=== PATIENT | male | born 1955 | race Caucasian/White ===

== ENCOUNTER 2018-09-04 11:30 | Inpatient (IN) | payer OTHER ==
[~2018-09-04] VITALS: Ht 167.6 cm; Wt 64.0 kg
[2018-09-04 12:33] LABS: BASOPHILS ABSOLUTE AUTO 0.06 K/mm3 (0.00-0.23); BASOPHILS PERCENT AUTO 0 % (0-2); EOSINOPHILS ABSOLUTE AUTO 0.03 K/mm3 (0.00-0.68); EOSINOPHILS PERCENT AUTO 0 % (0-6); Hematocrit 42.8 % (37.0-53.0); Hemoglobin 13.8 g/dL (13.5-17.5); IMMATURE GRAN ABSOLUTE AUTO 0.07 K/mm3 (0.00-0.10); IMMATURE GRAN PERCENT AUTO 0 % (0-1); LYMPHOCYTES ABSOLUTE AUTO 2.58 K/mm3 (0.84-5.20); LYMPHOCYTES PERCENT AUTO 14 % (21-46); MONOCYTES ABSOLUTE AUTO 1.74 K/mm3 (0.16-1.47); MONOCYTES PERCENT AUTO 9 % (4-13); Mean Corpuscular HGB 30.4 pg (26.0-34.0); Mean Corpuscular HGB Conc 32.2 g/dL (31.5-36.5); Mean Corpuscular Volume 94 fL (80-100); Mean Platelet Volume 10.7 fL (9.1-12.4); NEUTROPHILS ABSOLUTE AUTO 14.04 K/mm3 (1.96-9.15); NEUTROPHILS PERCENT AUTO 76 % (41-73); Platelet Count 153 K/mm3 (150-400); RDW Coefficient Variation 13.2 % (11.7-14.2); RDW Standard Deviation 46.1 fL (35.1-46.3); Red Blood Cell Count 4.54 M/mm3 (4.30-5.90); White Blood Cell Count 18.52 K/mm3 (4.00-11.30)
[2018-09-04 12:52] LABS: Alanine Aminotransfer (ALT/SGP 26 U/L (12-78); Albumin, Blood 3.6 g/dL (3.4-5.0); Albumin/Globulin Ratio 1.1 (0.8-1.8); Alk Phos 71 U/L (50-136); Anion Gap 6 mmol/L (6-16); Aspartate Aminotrans (AST/SGOT 23 U/L (12-37); Bilirubin, Total 0.5 mg/dL (0.1-1.0); Blood Urea Nitrogen 14 mg/dL (8-24); Bun/Creatinine Ratio 20.8 (12.0-20.0); CO2, Blood 23 mmol/L (21-32); Calcium, Blood 8.3 mg/dL (8.5-10.1); Chloride, Blood 111 mmol/L (98-108); Creatinine, Blood 0.67 mg/dL (0.60-1.20); Globulin, Blood 3.4 g/dL (2.2-4.0); Glomerular Filtration Rate >60 (60-); Glucose, Blood 106 mg/dL (70-99); Potassium, Blood 3.7 mmol/L (3.5-5.5); Sodium, Blood 140 mmol/L (136-145)
[2018-09-04] MEDS ORDERED: LANS30EC PO (13:43)
[2018-09-04] MEDS ORDERED: SIMV40 PO (13:44)
[2018-09-04] MEDS ORDERED: Coq-1030 MG PO (13:44)
[2018-09-04 15:12] LABS: International Normalized Ratio 1.05; Prothrombin Time Results 11.1 Sec (9.7-11.5)
--- NOTE | 2018-09-04 16:20 | NUR ---
ADMIT TO PCU 11, VIA MINI FROM ER; DX: ? NSTEMI AND POSSIBLE PNEUMONIA. PATIENT AND SPOUSE ORIENTED TO ROOM AND PROTOCOLS. PATIENT WITH CHEST SORENESS WHICH IS AGGRAVATED WITH EACH BREATH; WORSE WITH DEEP BREATHS. BIOX. READINGS MID TO HIGH 90'S; OXYGEN AT 3L/MIN VIA NC. LUNGS DECREASED T/O; COUGH DRY AND NON-PRODUCTIVE. SEE ER REPORTS FOR DETAILS.
--- NOTE | 2018-09-04 17:00 | NUR ---
HEPARIN DRIP STARTED EARLIER; SEE EMAR. PROTONIX AND METOPROLOL (1/2 OF 25MG) GIVEN PO.
[2018-09-04 17:20] LABS: Adenovirus Not Detected (NOT DETECT); Bordetella pertussis Not Detected (NOT DETECT); Chlamydophila pneumoniae Not Detected (NOT DETECT); Coronavirus 229E Not Detected (NOT DETECT); Coronavirus HKU1 Not Detected (NOT DETECT); Coronavirus NL63 Not Detected (NOT DETECT); Coronavirus OC43 Not Detected (NOT DETECT); Human Metapneumovirus Not Detected (NOT DETECT); Human Rhinovirus/Enterovirus Not Detected (NOT DETECT); Influenza A Not Detected (NOT DETECT); Influenza A/2009-H1 Not Detected (NOT DETECT); Influenza A/H1 Not Detected (NOT DETECT); Influenza A/H3 Not Detected (NOT DETECT); Influenza B Not Detected (NOT DETECT); Mycoplasma pneumoniae Not Detected (NOT DETECT); Parainfluenza Virus 1 Not Detected (NOT DETECT); Parainfluenza Virus 2 Not Detected (NOT DETECT); Parainfluenza Virus 3 Not Detected (NOT DETECT); Parainfluenza Virus 4 Not Detected (NOT DETECT); Respiratory Syncytial Virus Not Detected (NOT DETECT)
--- NOTE | 2018-09-04 17:30 | NUR ---
DR. JUNIOR (BODY LINER) CALLED; READ PATIENTS' ECHO AND HAD LOOKED AT EKG; FEELS CARDIOLOGY CONSULT NOT INDICATED AT THIS TIME BUT RN NEEDS TO CALL THE HOSPITALIST [facility] FOR PATIENT AND LET HER KNOW; IF CONSULT STILL DESIRED DR. JUNIOR REQUESTS T/C TO ANSWERING SERVICE, IN AM, TO NOTIFY TOMORROW'S LOAN PROCESSING SUPERVISOR PHYSICIAN. RN SPOKE TO DR. LAZO AND SHE IS OKAY WITH WAITING TIL TOMORROW FOR CONSULT IF INDICATED; WILL SEE HOW PATIENT PROGRESSES T/O NIGHT.
--- NOTE | 2018-09-04 18:00 | NUR ---
SUMMARY: NO ACUTE CHANGES; PATIENT CONT. WITH CHEST SORENESS AND WANTING PAIN MEDICATION. RN OFFERED TYLENOL OR MORPHINE AND PATIENT DOESN'T FEEL GOOD ABOUT EITHER MED. SPOUSE STATES PATIENT RECEIVED A MEDICATION IN THE ER THAT HELPED A LOT; IT WAS AN ANXIETY MED. RN INSTRUCTED WILL EVAL EMAR, ETC. TAKING PO MEDS AND WATER WITHOUT GI UPSET. WILL REPORT TO ONCOMING RN.
--- NOTE | 2018-09-04 19:30 | NUR ---
DR CHOI CRITICAL TROPONIN CALLED TO THIS NURSE @[address] CHOI ON UNIT. NOTIFIED, DR WATCHING TELE MONITOR ON THIS PT AND STATES WANTING STAT EKG. STAT EKG PERFORMED. PAPER TO DR. HOBBS TO ROOM TO ASSESS PT. PLACES MED ORDERS. PLACES ORDER STAT PORTABLE CXR. SPOKE WITH DR PRYOR. KONSTANTIN STATES HE DOES NOT SEE A NEED FOR ANGIOGRAM TONIGHT BUT WILL CONTINUE TO MONITOR. EKG ORDERED FOR 09/05. TROPONINS TO BE DRAWN VIA LAB. HEPARIN INF BOLUS GIVEN PER PHARMACY AND INFUSION RATE TITRATED R/T APTT RESULTS. PT TOLD TO NOTIFY NURSE IF HIS CP CHANGES, WORSENS OR IF HE EXPERIENCES DYSPNEA, SOB, SWEATING, ETC. 0036 PT HAS BEEN RESTING QUIETLY. HAS DENIED CP CHANGES, DENIES CHEST PRESSURE. VSS
[2018-09-05 04:17] LABS: BASOPHILS ABSOLUTE AUTO 0.09 K/mm3 (0.00-0.23); BASOPHILS PERCENT AUTO 1 % (0-2); EOSINOPHILS ABSOLUTE AUTO 0.12 K/mm3 (0.00-0.68); EOSINOPHILS PERCENT AUTO 1 % (0-6); Hematocrit 44.4 % (37.0-53.0); Hemoglobin 14.1 g/dL (13.5-17.5); IMMATURE GRAN ABSOLUTE AUTO 0.03 K/mm3 (0.00-0.10); IMMATURE GRAN PERCENT AUTO 0 % (0-1); LYMPHOCYTES ABSOLUTE AUTO 3.16 K/mm3 (0.84-5.20); LYMPHOCYTES PERCENT AUTO 26 % (21-46); MONOCYTES ABSOLUTE AUTO 1.52 K/mm3 (0.16-1.47); MONOCYTES PERCENT AUTO 12 % (4-13); Mean Corpuscular HGB 30.2 pg (26.0-34.0); Mean Corpuscular HGB Conc 31.8 g/dL (31.5-36.5); Mean Corpuscular Volume 95 fL (80-100); Mean Platelet Volume 10.8 fL (9.1-12.4); NEUTROPHILS PERCENT AUTO 60 % (41-73); Platelet Count 162 K/mm3 (150-400); RDW Coefficient Variation 13.3 % (11.7-14.2); RDW Standard Deviation 46.8 fL (35.1-46.3); Red Blood Cell Count 4.67 M/mm3 (4.30-5.90); White Blood Cell Count 12.32 K/mm3 (4.00-11.30)
[2018-09-05 04:38] LABS: Alanine Aminotransfer (ALT/SGP 25 U/L (12-78); Albumin, Blood 3.3 g/dL (3.4-5.0); Albumin/Globulin Ratio 0.9 (0.8-1.8); Alk Phos 73 U/L (50-136); Anion Gap 5 mmol/L (6-16); Aspartate Aminotrans (AST/SGOT 22 U/L (12-37); Bilirubin, Total 0.7 mg/dL (0.1-1.0); Blood Urea Nitrogen 11 mg/dL (8-24); Bun/Creatinine Ratio 15.9 (12.0-20.0); CO2, Blood 24 mmol/L (21-32); Calcium, Blood 8.9 mg/dL (8.5-10.1); Chloride, Blood 111 mmol/L (98-108); Cholesterol 117 mg/dL (50-200); Creatinine, Blood 0.69 mg/dL (0.60-1.20); Globulin, Blood 3.8 g/dL (2.2-4.0); Glomerular Filtration Rate >60 (60-); Glucose, Blood 98 mg/dL (70-99); HDL Cholesterol 59 mg/dL (>39); LDL/HDL RATIO 0.8; Low Density Lipoprotein Chol 45 mg/dL (0-110); Magnesium, Blood 2.2 mg/dL (1.6-2.4); Potassium, Blood 4.2 mmol/L (3.5-5.5); Sodium, Blood 140 mmol/L (136-145); Total Protein, Blood 7.1 g/dL (6.4-8.2); Triglycerides 67 mg/dL (30-160); Very Low Density Lipoprot Chol 13 mg/dL (6-32)
--- NOTE | 2018-09-05 05:45 | NUR ---
END OF SHIFT SUMMARY SEE NOTE REGARDING DR CHOI AT BEGINNING OF SHIFT~ ST ELEVATION CONTINUES, CP CONTINUES, JIMBO IN ROOM AT THAT POINT. EKG DONE, CXR DONE. DOES NOT PLACE ORDER FOR ANGIO LAST NIGHT. STATES TO CONTINUE PT ON HEPARIN AND TO CLOSELY MONITO CORIE AND CP/PRESURE. ASKS NURSE TO CALL IF ANY ACUTE CHANGES PRESENT. PT STATES CP HAS NOPT CHANGED OR WORSENED, TROPONIN HAS DECREASED FROM 1.010 TO 0.853. WE WILL OBTAIN ORDERED EKG @0600 THIS AM. PT TO POSSIBLY HAVE ANGIO TODAY DEPENDENT ON . WILL CONTINUE TO MONITOR PT UNTIL SHIFT CHANGE. CALL DEB STONER, USES APPROPRIATELY.
--- NOTE | 2018-09-05 08:00 | NUR ---
ASSUMED CARE PT ALERT AND ORIENTED. VS STABLE. TELEMETRY SHOWS ST ELEVATION. DR. CHOI AWARE AND IN TO ASSESS PT THIS AM. PLAN TO HAVE ANGIOGRAM TODAY. PT HAS BEEN NPO SINCE MIDNIGHT. AT THE BEDSIDE AND BOTH AND PT EDUCATED ABOUT NEED FOR ANGIOGRAM. PT COMPLAINS OF CHEST PAIN AT THIS TIME THAT IS 4/10 AND FEELS "MORE LIKE INFLAMMATION" PER PT. PT REPORTS IT IS WORSE WHILE COUGHING. WILL CONTINUE TO MONITOR CLOSELY. CALL LIGHT IN REACH.
--- NOTE | 2018-09-05 11:15 | NUR ---
PT TAKEN TO [facility] FOR ANGIOGRAM. WILL AWAIT RETURN.
--- NOTE | 2018-09-05 12:46 | NUR ---
PT RETURNED FROM [facility]ART CENTER. VS STABLE. RIGHT RADIAL SITE HAS 12CC OF AIR IN BAND. NO SIGNS OF BLEEDING, BRUISING OR HEMATOMA FORMATION AT THIS TIME. WILL CONTINUE TO MONITOR CLOSELY.
--- NOTE | 2018-09-05 17:57 | NUR ---
SHIFT SUMMARY PT ALERT AND ORIENTED. VS STABLE. O2 SATS REMAIN ABOVE 90% ON RA. PT DENIES ANY PAIN. 6CC OF AIR HAVE BEEN REMOVED FROM TR BAND AT THIS TIME. PT DID HAVE SOME BLEEDING WITH INITIAL 2CC OF AIR REMOVAL, IN WHICH AIR WAS PLACED BACK INTO BAND. NO BLEEDING, HEMATOMA FORMATION, OR BRUISING AT THIS TIME. WILL CONTINUE TO REMOVE AIR FROM BAND PER PROTOCOL. PT DENIES ANY CHEST PAIN SINCE ANGIOGRAM. WILL CONTINUE TO MONITOR CLOSELY AND REPORT TO ONCOMING RN. CALL LIGHT IN REACH.
--- NOTE | 2018-09-05 21:20 | NUR ---
ASSUMED CARE OF PATIENT AT APPROXIMATELY 1910 FROM TIAN Ardon RN. PATIENT ALERT AND ORIENTED X4; INDEPENDENT IN ROOM; PATIENT EDUCATED AGAIN ON RESTRICTIONS AFTER ANGIO WITH RIGHT WRIST; VERBALIZED UNDERSTANDING. PATIENT REPORTS PAIN 2/10 IN HIS CHEST THAT HE REPORTS IS LIKE THE WORSE CHEST COLD; INCREASES WITH INSPIRATION; DENIES PAIN MEDICATION. PATIENT DENIES PAIN ELSEWHERE, NUMBNESS, TINGLING, DIZZINESS OR NAUSEA. NSR WITH ST ELEVATION ON TELE; FINE CHEMICALS OPERATOR REPORTS ST ELEVATION IMPROVED SINCE THIS MORNING; REPORTED WOOD STAINER AWARE; OXYGEN SATURATION ABOVE 90% ON ROOM AIR. PATIENT HAD ANGIOGRAM TODAY; ACCESS THROUGH RIGHT RADIAL; 12 CC OF AIR REMOVED; LESS THAN 2CC REMAINS; NO S/S OF ACTIVE BLEEDING, HEMATOMA OR BRUISING NOTED; SOME DRIED BLOOD NOTED FROM DAYSHIFT. PATIENT HAS TWO PIV S/L; ONE WAS TENDER AND REMOVED PER REQUEST. PATIENT CURRENTLY RESTING IN BED; BED IN LOWEST POSISTION; CALL LIGHT IN REACH; WILL CONTINUE TO MONITOR AND ASSESS UNTIL END OF SHIFT.
[2018-09-06 04:03] LABS: BASOPHILS ABSOLUTE AUTO 0.05 K/mm3 (0.00-0.23); BASOPHILS PERCENT AUTO 0 % (0-2); EOSINOPHILS ABSOLUTE AUTO 0.22 K/mm3 (0.00-0.68); EOSINOPHILS PERCENT AUTO 2 % (0-6); Hematocrit 44.3 % (37.0-53.0); Hemoglobin 14.4 g/dL (13.5-17.5); IMMATURE GRAN ABSOLUTE AUTO 0.05 K/mm3 (0.00-0.10); IMMATURE GRAN PERCENT AUTO 0 % (0-1); LYMPHOCYTES ABSOLUTE AUTO 2.66 K/mm3 (0.84-5.20); LYMPHOCYTES PERCENT AUTO 20 % (21-46); MONOCYTES PERCENT AUTO 10 % (4-13); Mean Corpuscular HGB 30.1 pg (26.0-34.0); Mean Corpuscular HGB Conc 32.5 g/dL (31.5-36.5); Mean Corpuscular Volume 93 fL (80-100); Mean Platelet Volume 10.9 fL (9.1-12.4); NEUTROPHILS ABSOLUTE AUTO 9.31 K/mm3 (1.96-9.15); NEUTROPHILS PERCENT AUTO 68 % (41-73); Platelet Count 181 K/mm3 (150-400); RDW Coefficient Variation 12.8 % (11.7-14.2); RDW Standard Deviation 44.2 fL (35.1-46.3); Red Blood Cell Count 4.79 M/mm3 (4.30-5.90); White Blood Cell Count 13.59 K/mm3 (4.00-11.30)
[2018-09-06 04:27] LABS: Alanine Aminotransfer (ALT/SGP 23 U/L (12-78); Albumin, Blood 3.3 g/dL (3.4-5.0); Albumin/Globulin Ratio 0.8 (0.8-1.8); Alk Phos 71 U/L (50-136); Anion Gap 6 mmol/L (6-16); Aspartate Aminotrans (AST/SGOT 17 U/L (12-37); Bilirubin, Total 0.6 mg/dL (0.1-1.0); Blood Urea Nitrogen 15 mg/dL (8-24); Bun/Creatinine Ratio 19.3 (12.0-20.0); CO2, Blood 23 mmol/L (21-32); Calcium, Blood 8.8 mg/dL (8.5-10.1); Chloride, Blood 109 mmol/L (98-108); Creatinine, Blood 0.78 mg/dL (0.60-1.20); Globulin, Blood 3.9 g/dL (2.2-4.0); Glomerular Filtration Rate >60 (60-); Glucose, Blood 103 mg/dL (70-99); Potassium, Blood 3.8 mmol/L (3.5-5.5); Sodium, Blood 138 mmol/L (136-145); Total Protein, Blood 7.2 g/dL (6.4-8.2)
--- NOTE | 2018-09-06 08:30 | NUR ---
ASSUMED CARE PT ALERT AND ORIENTED. VS STABLE. PT COMPLAINS OF PAIN WITH DEEP BREATHING OR COUGHING IN HIS CHEST, BUT DENIES CHEST PAIN WITH REST. DR. CHOI IN THIS AM TO DISCUSS PLAN OF CARE AND FOR PT TO STAY ONE MORE NIGHT FOR MONITORING. PT EDUCATED ON SMOKING CESSATION. WILL CONTINUE TO MONITOR. CALL LIGHT IN REACH.
--- NOTE | 2018-09-06 12:48 | NUR ---
IN ROOM. STATES FENTANYL PATCH PLACED SUNDAY. NEEDS NEW TODAY. NOW. UPDATING ORDER ADMIN TIMES PER DR GRANADO
--- NOTE | 2018-09-06 13:53 | NUR ---
REPORT CALLED TO MEDICAL FLOOR RN. PT TAKEN UP BY WHEELCHAIR WITH ALL OF HIS BELONGINGS.
--- NOTE | 2018-09-06 14:00 | NUR ---
PT ARRIVED DURING LUNCH. SETTLED TO ROOM. PT ALERT ORIENTED. PT HAS ARMBAND IN PLACE. ACCESS RADIAL SITE ON RT F/A CDI. NO BLEEDING NOTED. SOME BRUISING NOTED. NO OTHER CONCERNS AT THIS TIME. BED IN LOW POSITION, CALL LITE IN REAC, CALLS APPROP
--- NOTE | 2018-09-06 18:44 | NUR ---
PT PLEASANT SINCE TRANSFER TO FLOOR. A/O. DENIES PAIN. INDEPENDANT IN ROOM. BED IN LOW POSITION ,CALL LITE IN REACH, CALLS APPROP. REQUESTS THAT WE LET HIM KNOW WHEN GETS D/C ORDERS TOMORROW AM, HE WILL CALL HIS TO COME TO [facility] FROM [facility] [facility]. NO OTHER CONCERNS AT THIS TIME. BED IN LOW POSITION, CALL LITE IN REACH, CALLS APPROP
--- NOTE | 2018-09-07 04:31 | NUR ---
SHIFT SUMMARY: 63 Y/O MALE RESTED COMFORTABLY ALL SHIFT WITH NO C/O PAIN OR DYSPNEA. PTS RIGHT WRIST WOUND SITE WELL APPROXIMATED AND COVERED WITH OPSITE DRESSING AND ARMBOARD. PT ANTICIPATING POSSIBLE DISCHARGE HOME TODAY (LIVES IN [place], [place]). PTS BED LOW POSITION, CALL LIGHT AT SIDE.
[2018-09-07 04:50] LABS: BASOPHILS ABSOLUTE AUTO 0.05 K/mm3 (0.00-0.23); BASOPHILS PERCENT AUTO 0 % (0-2); EOSINOPHILS ABSOLUTE AUTO 0.36 K/mm3 (0.00-0.68); EOSINOPHILS PERCENT AUTO 3 % (0-6); Hemoglobin 14.5 g/dL (13.5-17.5); IMMATURE GRAN ABSOLUTE AUTO 0.05 K/mm3 (0.00-0.10); IMMATURE GRAN PERCENT AUTO 0 % (0-1); LYMPHOCYTES ABSOLUTE AUTO 2.58 K/mm3 (0.84-5.20); LYMPHOCYTES PERCENT AUTO 21 % (21-46); MONOCYTES ABSOLUTE AUTO 1.16 K/mm3 (0.16-1.47); MONOCYTES PERCENT AUTO 9 % (4-13); Mean Corpuscular HGB 30.3 pg (26.0-34.0); Mean Corpuscular Volume 92 fL (80-100); Mean Platelet Volume 10.7 fL (9.1-12.4); NEUTROPHILS PERCENT AUTO 66 % (41-73); Platelet Count 193 K/mm3 (150-400); RDW Coefficient Variation 12.6 % (11.7-14.2); RDW Standard Deviation 42.5 fL (35.1-46.3); Red Blood Cell Count 4.79 M/mm3 (4.30-5.90)
--- NOTE | 2018-09-07 05:12 | NUR ---
AT 0233 ON Sunday09/07/18 I WENT TO DO A SET OF VITALS AND ACCIDENTLY PUT 89.0 FOR TEMPERATURE WHEN I MEANT TO PUT 98.0. I MADE THE CHANGE AND PUT THE CORRECT TEMPERATURE IN AT AROUND 0515 Sunday09/07/18.
[2018-09-07 05:18] LABS: Alanine Aminotransfer (ALT/SGP 28 U/L (12-78); Albumin, Blood 3.2 g/dL (3.4-5.0); Albumin/Globulin Ratio 0.8 (0.8-1.8); Alk Phos 70 U/L (50-136); Anion Gap 6 mmol/L (6-16); Aspartate Aminotrans (AST/SGOT 15 U/L (12-37); Bilirubin, Total 0.4 mg/dL (0.1-1.0); Blood Urea Nitrogen 17 mg/dL (8-24); Bun/Creatinine Ratio 21.8 (12.0-20.0); CO2, Blood 23 mmol/L (21-32); Calcium, Blood 8.7 mg/dL (8.5-10.1); Chloride, Blood 111 mmol/L (98-108); Creatinine, Blood 0.78 mg/dL (0.60-1.20); Globulin, Blood 3.9 g/dL (2.2-4.0); Glomerular Filtration Rate >60 (60-); Glucose, Blood 100 mg/dL (70-99); Sodium, Blood 140 mmol/L (136-145); Total Protein, Blood 7.1 g/dL (6.4-8.2)
[2018-09-07] MEDS ORDERED: ATOR40TA PO (13:58)
[2018-09-07] MEDS ORDERED: ASPI81CH PO (13:59)
[2018-09-07] MEDS ORDERED: CLOP75 PO (14:00)
[2018-09-07] MEDS ORDERED: METO25ER PO (14:01)
[2018-09-07] MEDS ORDERED: FAMO40 PO (14:02)
[2018-09-07] MEDS ORDERED: Zithromax250 MG PO (14:04)
--- NOTE | 2018-09-07 16:24 | NUR ---
PT AOX4 AND COOPERATIVE OF ALL CARE. PT DOING WELL READY TO DISCHARGE. ALL PAPERS REVIEWED AND EDUCATIONAL MATERIAL SENT WITH PT. PT TO FOLLOW UP WITH HIS OWN PCP DR ALICIA MA IN [place] WITH [place]. PT STATED HE HAS SPOKE WITH DR LAZO THAT HE WOULD DO FOLLOW UP CARE IN [facility] AND GET RECOMMENDATIONS FOR CARDIAC REHAB THROUGH DR MA PER PT'S STATEMENT. PT INSTRUCTED ON THE IMPORTANCE OF FOLLOW UP APPOINTMENT AND DISCUSSED NEW MEDICATIONS.
== END 2018-09-07 15:06 | disposition home or self-care (01) | DRG 280 ==
LOC: ER 11:30 → PCU 14:18 → MEDS 09-06 13:49 → ENPENDDIS 09-07 11:58 → MEDS 09-07 15:06
PROVIDERS: Physician Assistant; ADMIT Internal Medicine
PROC: B2101ZZ Fluoroscopy of Single Coronary Artery using Low Osmolar Contrast (ICD-10-PCS; principal; 2018-09-05)
DX: I21.4 Non-ST elevation (NSTEMI) myocardial infarction (principal); A41.9 Sepsis, unspecified organism; J18.9 Pneumonia, unspecified organism; E78.00 Pure hypercholesterolemia, unspecified; F17.210 Nicotine dependence, cigarettes, uncomplicated; N40.0 Benign prostatic hyperplasia without lower urinary tract symptoms; E66.9 Obesity, unspecified; Z68.25 Body mass index [BMI] 25.0-25.9, adult; E78.5 Hyperlipidemia, unspecified; I71.2 Thoracic aortic aneurysm, without rupture
CPT/HCPCS: 36415; 71045; 71046; 80053; 80061; 83605; 83735; 83880; 84145; 84443; 84484; 85025; 85610; 85651; 85730; 87040; 87486; 87581; 87633; 87798; 92928; 92978; 93005; 93010; 93306; 93458; 93571; 93572; 99152; 99153; 99285-25; A9270; C1753; C1769; C1876; C1887; C1894; J0456; J0696; J1644; J2250; J2270; J3010; J7030; J7050; Q9967